=== PATIENT | female | born 2000 | race Caucasian/White ===

== ENCOUNTER → 2020-04-29 | Day surgery (SDC) | payer OTHER ==
[~2020-04-29] MED LIST: LACTATED RINGERS 1,000 ML IV ONE; LIDOCAINE 1% INJ 10MG/ML (20 ML MDV) ONE; MIDAZOLAM 2 MG/2 ML VIAL ONE; PROPOFOL 10 MG/ML 20 ML VIAL IV ONE; fentaNYL (PF) 50 MCG/ML 2 ML AMP ONE
[2020-04-29 12:38] VITALS: TEMP 97.6
--- NOTE | 2020-04-29 14:04 | P.PCN ---
Date of Procedure: 04/29/20 Procedure(s) Performed: BRIEF HISTORY: Patient is a 19-year-old, pleasant, white female scheduled for an upper endoscopy for evaluation of dysphagia to solids for the last 6 months duration. Symptoms are progressively getting worse. She denies any weight loss. Has intermittent chest pain and nausea vomiting also.. PROCEDURE PERFORMED: Esophagogastroduodenoscopy with biopsy. PREOPERATIVE DIAGNOSIS: Progressive dysphagia to solids of 6 months duration with intermittent nausea vomiting and atypical chest. IV sedation per anesthesia. PROCEDURE: After informed consent was obtained, the patient was brought into the endoscopy unit. IV sedation was administered by Anesthesia under continuous monitoring. Initially the Olympus GIF-140 video endoscope was inserted into the mouth. Esophagus intubated without any difficulty. It was gradually advanced into the stomach and duodenum and carefully examined. The bulb and the second part of the duodenum appeared normal. The scope at this time was withdrawn to the stomach, adequately insufflated with air, and upon careful examination, mucosa of the antrum had mild gastritis and biopsies were done from this area. The, body, cardia and the fundus appeared normal. The scope was then withdrawn into the esophagus. The GE junction was located at 39 cm from the incisors. There were superficial erythema the GE junction consistent with LA grade a reflux esophagitis. The rest of the esophagus appeared normal. There were no erosions or ulcerations or esophageal stricture seen. Biopsies were done from the mid and distal esophagus and the patient tolerated the procedure well. IMPRESSION: 1. Patchy erythema at the GE junction consistent with LA grade a reflux esophagitis. 2. Progressive esophagus appeared normal with no evidence of esophageal stricture. 3. Mild antral gastritis RECOMMENDATIONS: The findings of this examination were discussed with the patient as well as a family. She was advised to follow with the biopsy results. She'll be started on Prilosec 20 mg daily and was briefly. She was educated about about antireflux measures. If she still remains symptomatic in 6 weeks will proceed with esophageal manometry to investigate further.
[2020-04-29 14:07] VITALS: RESP 17
[2020-04-29 14:16] VITALS: BP 106/67; PULSE 91
== END ==
LOC: ORWHC2ENDO 12:00
PROVIDERS: ATTEND Internal Medicine Gastroenterology
DX: K29.50 Unspecified chronic gastritis without bleeding (principal); K20.90 Esophagitis, unspecified without bleeding; R13.10 Dysphagia, unspecified; J45.909 Unspecified asthma, uncomplicated; Z88.0 Allergy status to penicillin; Z79.899 Other long term (current) drug therapy; Z98.890 Other specified postprocedural states
CPT/HCPCS: 43239; 81025; 88305; J2250; J2001; J3010; J2704